=== PATIENT | male | born 1965 | race Caucasian/White ===

== ENCOUNTER 2018-01-25 20:37 | Inpatient (IN) | payer BC, MEDICAID ==
[2018-01-25] MEDS: ONDANSETRON 4 MG INJ IV (21:34)
[2018-01-25] MEDS: morphine 4 MG/ML VIAL IV (21:38)
[2018-01-25 22:13] LABS: ADD MAN DIFF? NO
[2018-01-25 22:16] LABS: ABNORMAL IP MESSAGE 1; BASOPHILS % 0.5 % (0.0-2.0); EOSINOPHILS # 0.1 10^3/ul (0.0-0.5); EOSINOPHILS % 3.5 % (0.0-7.0); HEMATOCRIT 31.4 % (42.0-52.0); HEMOGLOBIN 10.6 g/dl (14.0-18.0); LYMPHOCYTES # 0.5 10^3/ul (0.8-2.9); LYMPHOCYTES % 12.8 % (15.0-51.0); MEAN CORPUSCULAR HEMOGLOBIN 31.2 pg (29.0-33.0); MEAN CORPUSCULAR HGB CONC 33.8 g/dl (32.0-37.0); MEAN CORPUSCULAR VOLUME 92.4 fl (82.0-101.0); MEAN PLATELET VOLUME 10.4 fl (7.4-10.4); MONOCYTE # 0.5 10^3/ul (0.3-0.9); MONOCYTES % 11.3 % (0.0-11.0); NEUTROPHIL # 2.8 10^3/ul (1.6-7.5); NEUTROPHILS % 71.4 % (39.0-77.0); PLATELET COUNT 124 10^3/UL (140-415); POSITIVE DIFF @See below; RED CELL DISTRIBUTION WIDTH 12.1 % (11.5-14.5)
[2018-01-25 22:36] LABS: PROTIME 13.3 Sec (11.9-14.9)
[2018-01-25 22:37] LABS: PARTIAL THROMBOPLASTIN TIME 35.6 Sec (25.0-35.0)
[2018-01-25 22:49] LABS: TROPONIN-I 0.029 ng/ml (0.000-0.120)
[2018-01-26] MEDS ORDERED: ALBUTEROL/IPRATROPIUM (NEB) 3 ML AMP NEB
[2018-01-26 05:15] LABS: ADD MAN DIFF? NO
[2018-01-26 05:26] LABS: WHITE BLOOD COUNT 3.9 10^3/ul (4.8-10.8)
[2018-01-26 05:26] LABS: BASOPHILS % 0.5 % (0.0-2.0); EOSINOPHILS # 0.2 10^3/ul (0.0-0.5); EOSINOPHILS % 4.6 % (0.0-7.0); HEMATOCRIT 30.3 % (42.0-52.0); HEMOGLOBIN 9.8 g/dl (14.0-18.0); LYMPHOCYTES # 0.8 10^3/ul (0.8-2.9); LYMPHOCYTES % 19.6 % (15.0-51.0); MEAN CORPUSCULAR HEMOGLOBIN 30.5 pg (29.0-33.0); MEAN CORPUSCULAR HGB CONC 32.3 g/dl (32.0-37.0); MEAN CORPUSCULAR VOLUME 94.4 fl (82.0-101.0); MEAN PLATELET VOLUME 10.1 fl (7.4-10.4); MONOCYTE # 0.5 10^3/ul (0.3-0.9); MONOCYTES % 11.7 % (0.0-11.0); NEUTROPHIL # 2.5 10^3/ul (1.6-7.5); NEUTROPHILS % 63.1 % (39.0-77.0); PLATELET COUNT 106 10^3/UL (140-415); RED BLOOD COUNT 3.21 10^6/ul (4.70-6.10); RED CELL DISTRIBUTION WIDTH 12.1 % (11.5-14.5)
[2018-01-26 06:08] LABS: ALANINE AMINOTRANSFERASE 19 IU/L (13-69); ALBUMIN 3.7 g/dl (3.3-4.9); ALBUMIN/GLOBULIN RATIO 1.37; ALKALINE PHOSPHATASE 105 IU/L (42-121); ANION GAP 19 (8-16); ASPARTATE AMINO TRANSFERASE 9 IU/L (15-46); BLOOD UREA NITROGEN 60 mg/dl (7-20); CALCIUM 8.8 mg/dl (8.4-10.2); CARBON DIOXIDE 22 mmol/L (21-31); CHLORIDE 101 mmol/L (97-110); CREATININE 12.51 mg/dl (0.61-1.24); GLUCOSE 89 mg/dl (70-220); SODIUM 135 mmol/L (135-144); TOTAL PROTEIN 6.4 g/dl (6.1-8.1)
[2018-01-26 07:25] LABS: POTASSIUM 6.6 mmol/L (3.5-5.1)
[2018-01-26] MEDS: NA POLYST SULFON 15 GM/60 ML BTL PR (07:58)
[2018-01-26] MEDS ORDERED: FAMOTIDINE 20 MG INJ IV (09:00)
[2018-01-26] MEDS: CALCIUM GLUCONATE 10% 1 GM in DEXTROSE 5% 100 ML IVPB (09:00)
[2018-01-26 10:28] LABS: COLLAGEN/ADP 170 Secs. (40-147); COLLAGEN/EPI 220 Secs. (51-198)
[2018-01-26] MEDS: DEXAMETHASONE 4 MG/ML 1 ML INJ IV ×3 (12:13→23:40)
[2018-01-26] MEDS: morphine LIQ (10 MG/5 ML) CUP PO (13:26)
[2018-01-26 16:32] LABS: HEPATITIS B SURFACE ANTIGEN NEGATIVE (NEGATIVE)
[2018-01-26] MEDS: AMLODIPINE 10 MG TAB PO (18:35)
[2018-01-26] MEDS: LABETALOL HCL 20MG INJ IV (18:59)
[2018-01-26] MEDS: hydrALAzine 20 MG INJ IV (22:05)
[2018-01-27] MEDS: hydrALAzine 20 MG INJ IV ×2 (03:15→19:46)
[2018-01-27 05:34] LABS: ADD MAN DIFF? NO
[2018-01-27] MEDS: DEXAMETHASONE 4 MG/ML 1 ML INJ IV ×3 (05:45→19:35)
[2018-01-27] MEDS ORDERED: PANTOPRAZOLE (EC) 40 MG TAB PO (06:00)
[2018-01-27 06:04] LABS: WHITE BLOOD COUNT 3.1 10^3/ul (4.8-10.8)
[2018-01-27 06:04] LABS: ABNORMAL IP MESSAGE 1; HEMATOCRIT 30.1 % (42.0-52.0); HEMOGLOBIN 10.1 g/dl (14.0-18.0); LYMPHOCYTES # 0.2 10^3/ul (0.8-2.9); LYMPHOCYTES % 7.2 % (15.0-51.0); MEAN CORPUSCULAR HEMOGLOBIN 30.5 pg (29.0-33.0); MEAN CORPUSCULAR HGB CONC 33.6 g/dl (32.0-37.0); MEAN CORPUSCULAR VOLUME 90.9 fl (82.0-101.0); MEAN PLATELET VOLUME 10.4 fl (7.4-10.4); MONOCYTE # 0.1 10^3/ul (0.3-0.9); MONOCYTES % 2.3 % (0.0-11.0); NEUTROPHIL # 2.7 10^3/ul (1.6-7.5); NEUTROPHILS % 89.5 % (39.0-77.0); PLATELET COUNT 127 10^3/UL (140-415); POSITIVE DIFF @See below; RED BLOOD COUNT 3.31 10^6/ul (4.70-6.10); RED CELL DISTRIBUTION WIDTH 11.7 % (11.5-14.5)
[2018-01-27 06:39] LABS: INR 1.09; PROTIME 14.2 Sec (11.9-14.9); PT RATIO 1.1
[2018-01-27 06:40] LABS: ALANINE AMINOTRANSFERASE 20 IU/L (13-69); ALBUMIN 3.6 g/dl (3.3-4.9); ALBUMIN/GLOBULIN RATIO 1.16; ALKALINE PHOSPHATASE 117 IU/L (42-121); ANION GAP 18 (8-16); ASPARTATE AMINO TRANSFERASE 12 IU/L (15-46); BILIRUBIN,INDIRECT 0.1 mg/dl (0-1.1); BILIRUBIN,TOTAL 0.1 mg/dl (0.2-1.3); BLOOD UREA NITROGEN 42 mg/dl (7-20); CARBON DIOXIDE 27 mmol/L (21-31); CHLORIDE 98 mmol/L (97-110); CREATININE 9.04 mg/dl (0.61-1.24); GLUCOSE 179 mg/dl (70-220); PARTIAL THROMBOPLASTIN TIME 32.9 Sec (25.0-35.0); SODIUM 138 mmol/L (135-144); TOTAL PROTEIN 6.7 g/dl (6.1-8.1)
[2018-01-27] MEDS: ACETAMINOPHEN 650MG/20.3ML CUP PO (06:43)
[2018-01-27] MEDS ORDERED: ROCURONIUM 50 MG INJ ×2 (07:00→16:14)
[2018-01-27] MEDS ORDERED: PROPOFOL 200 MG INJ (07:00)
[2018-01-27] MEDS: SEVELAMER 800 MG TAB PO ×3 (07:34→17:35)
[2018-01-27 07:49] LABS: MAGNESIUM 2.3 mg/dl (1.7-2.5)
[2018-01-27 07:49] LABS: PHOSPHORUS 5.6 mg/dl (2.5-4.9)
[2018-01-27] MEDS: CINACALCET 30 MG TAB PO (09:00)
[2018-01-27] MEDS: NIFEdipine (XL) 90 MG TAB PO (10:30)
[2018-01-27] MEDS ORDERED: LIDOCAINE 0.5% (MDV) 50 ML INJ (14:24)
[2018-01-27] MEDS ORDERED: NEOMYC/POLYMYX/BACIT 30 GM OINT (14:25)
[2018-01-27] MEDS ORDERED: GELATIN SIZE 100 SPONGE (14:26)
[2018-01-27] MEDS ORDERED: THROMBIN 5000 UNIT VIAL ×2 (14:51→14:53)
[2018-01-27] MEDS ORDERED: PROPOFOL 20 ML (15:52)
[2018-01-27] MEDS ORDERED: LIDOCAINE 2% (SDV) 5 ML INJ (15:52)
[2018-01-27] MEDS ORDERED: CEFAZOLIN 1 GM INJ (16:14)
[2018-01-27] MEDS: BACITRACIN 50000 UNITS INJ (16:42)
[2018-01-27] MEDS: LIDOCAINE 1%/EPI 30 ML INJ (16:42)
[2018-01-27] MEDS: THROMBIN 5000 UNIT VIAL (17:48)
[2018-01-27] MEDS ORDERED: DIPHENHYDRAMINE 50 MG INJ IV ×2 (19:00→19:30)
[2018-01-27] MEDS ORDERED: DIPHENHYDRAMINE 25 MG CAP PO (19:00)
[2018-01-27] MEDS ORDERED: ONDANSETRON 4 MG INJ IV ×2 (19:00→19:30)
[2018-01-27] MEDS ORDERED: CEPASTAT LOZENGE MT (19:00)
[2018-01-27] MEDS ORDERED: CEFAZOLIN 2 GM/50 ML (PMX) 50 ML IVPB (19:00)
[2018-01-27] MEDS ORDERED: FAMOTIDINE 20 MG INJ (19:01)
[2018-01-27] MEDS ORDERED: ONDANSETRON 4 MG INJ (19:01)
[2018-01-27] MEDS ORDERED: DEXAMETHASONE 4 MG/ML 1 ML INJ (19:01)
[2018-01-27] MEDS ORDERED: FENTAnyl 50 MCG/ML VIAL IV (19:30)
[2018-01-27] MEDS: LACTATED RINGER'S 1,000 ML IV (19:35)
[2018-01-27] MEDS: CEFAZOLIN 2 GM/50 ML (PMX) 50 ML IVPB (20:50)
[2018-01-27] MEDS: HYDROmorphONE 0.5 MG/0.5 ML SYG IV (21:02)
[2018-01-28] MEDS: hydrALAzine 20 MG INJ IV ×3 (00:18→22:12)
[2018-01-28] MEDS: DEXAMETHASONE 4 MG/ML 1 ML INJ IV ×4 (00:18→17:01)
[2018-01-28 05:23] LABS: ADD MAN DIFF? NO
[2018-01-28 05:36] LABS: ABNORMAL IP MESSAGE 1; BASOPHILS % 0.1 % (0.0-2.0); HEMATOCRIT 30.8 % (42.0-52.0); HEMOGLOBIN 10.2 g/dl (14.0-18.0); LYMPHOCYTES # 0.3 10^3/ul (0.8-2.9); LYMPHOCYTES % 1.9 % (15.0-51.0); MEAN CORPUSCULAR HEMOGLOBIN 30.7 pg (29.0-33.0); MEAN CORPUSCULAR HGB CONC 33.1 g/dl (32.0-37.0); MEAN CORPUSCULAR VOLUME 92.8 fl (82.0-101.0); MEAN PLATELET VOLUME 10.1 fl (7.4-10.4); MONOCYTE # 0.2 10^3/ul (0.3-0.9); MONOCYTES % 1.7 % (0.0-11.0); NEUTROPHIL # 12.8 10^3/ul (1.6-7.5); NEUTROPHILS % 95.8 % (39.0-77.0); PLATELET COUNT 152 10^3/UL (140-415); POSITIVE DIFF @See below; RED BLOOD COUNT 3.32 10^6/ul (4.70-6.10); RED CELL DISTRIBUTION WIDTH 12.1 % (11.5-14.5)
[2018-01-28 05:36] LABS: WHITE BLOOD COUNT 13.4 10^3/ul (4.8-10.8)
[2018-01-28] MEDS: PANTOPRAZOLE (EC) 40 MG TAB PO (05:46)
[2018-01-28] MEDS: LACTATED RINGER'S 1,000 ML IV (05:52)
[2018-01-28 06:01] LABS: ANION GAP 20 (8-16); BLOOD UREA NITROGEN 51 mg/dl (7-20); CALCIUM 9.2 mg/dl (8.4-10.2); CARBON DIOXIDE 26 mmol/L (21-31); CHLORIDE 100 mmol/L (97-110); CREATININE 10.83 mg/dl (0.61-1.24); GLUCOSE 145 mg/dl (70-220); POTASSIUM 5.8 mmol/L (3.5-5.1); SODIUM 140 mmol/L (135-144)
[2018-01-28] MEDS: HYDROCODONE/APAP (5/325) TAB PO ×2 (07:22→13:25)
[2018-01-28] MEDS: SEVELAMER 800 MG TAB PO ×3 (07:48→16:58)
[2018-01-28] MEDS: NIFEdipine (XL) 90 MG TAB PO (07:51)
[2018-01-28] MEDS: CINACALCET 30 MG TAB PO (07:51)
[2018-01-28] MEDS: CEFAZOLIN 2 GM/50 ML (PMX) 50 ML IVPB ×2 (07:52→20:55)
[2018-01-29] MEDS: DEXAMETHASONE 4 MG/ML 1 ML INJ IV ×2 (00:06→05:28)
[2018-01-29] MEDS: hydrALAzine 20 MG INJ IV ×2 (05:28→21:32)
[2018-01-29] MEDS: PANTOPRAZOLE (EC) 40 MG TAB PO (05:28)
[2018-01-29] MEDS: HYDROCODONE/APAP (5/325) TAB PO ×2 (05:28→20:23)
[2018-01-29 05:51] LABS: ADD MAN DIFF? NO
[2018-01-29 06:09] LABS: WHITE BLOOD COUNT 9.7 10^3/ul (4.8-10.8)
[2018-01-29 06:09] LABS: ABNORMAL IP MESSAGE 1; BASOPHILS % 0.2 % (0.0-2.0); HEMATOCRIT 29.7 % (42.0-52.0); HEMOGLOBIN 9.8 g/dl (14.0-18.0); LYMPHOCYTES # 0.4 10^3/ul (0.8-2.9); LYMPHOCYTES % 3.8 % (15.0-51.0); MEAN CORPUSCULAR HEMOGLOBIN 31.3 pg (29.0-33.0); MEAN CORPUSCULAR VOLUME 94.9 fl (82.0-101.0); MEAN PLATELET VOLUME 10.1 fl (7.4-10.4); MONOCYTE # 0.4 10^3/ul (0.3-0.9); MONOCYTES % 4.6 % (0.0-11.0); NEUTROPHIL # 8.8 10^3/ul (1.6-7.5); NEUTROPHILS % 90.6 % (39.0-77.0); PLATELET COUNT 136 10^3/UL (140-415); POSITIVE DIFF @See below; RED BLOOD COUNT 3.13 10^6/ul (4.70-6.10)
[2018-01-29 06:35] LABS: ANION GAP 15 (8-16); BLOOD UREA NITROGEN 35 mg/dl (7-20); CALCIUM 8.6 mg/dl (8.4-10.2); CARBON DIOXIDE 30 mmol/L (21-31); CHLORIDE 101 mmol/L (97-110); CREATININE 7.73 mg/dl (0.61-1.24); GLUCOSE 134 mg/dl (70-220); MAGNESIUM 2.2 mg/dl (1.7-2.5); PHOSPHORUS 6.5 mg/dl (2.5-4.9); SODIUM 141 mmol/L (135-144)
[2018-01-29] MEDS: SEVELAMER 800 MG TAB PO ×3 (07:58→16:57)
[2018-01-29] MEDS: NIFEdipine (XL) 90 MG TAB PO (08:02)
[2018-01-29] MEDS: CINACALCET 30 MG TAB PO (08:02)
[2018-01-29] MEDS ORDERED: METHYLPREDNISOLONE (MEDROL) DOSE PACK PO (08:30)
[2018-01-29] MEDS: METHYLPREDNISOLONE 4 MG TAB PO (09:24)
[2018-01-29] MEDS ORDERED: LEVETIRACETAM 750 MG TAB PO (21:00)
[2018-01-29] MEDS ORDERED: LORAZEPAM 2 MG INJ IV ×2 (21:30)
[2018-01-29] MEDS: LEVETIRACETAM 1000 MG (PMX) 100 ML IVPB (21:44)
[2018-01-29] MEDS: DEXTROSE 5%-0.45% NACL 1,000 ML IV (21:44)
[2018-01-29 22:05] LABS: AADO2 Arterial 384.8 mmHg (7.0-24.0); Allen Test ACCEPTAB; Arterial Base Excess -3.3 mmol/L (-3.0-3); Arterial Blood Gas Oxygen Sat 99.2 mmHG (95.0-98.0); Arterial COHb 0.3 % (0.0-3.0); Arterial Fraction of Oxyhgb 98.5 % (93.0-99.0); Arterial HCO3 22.6 mmol/L (22.0-26.0); Arterial MetHb 0.4 % (0.0-1.5); Arterial Total Hemglobin 10.7 g/dl (12.0-18.0); Arterial pCO2 44.3 mmhg (35-45); MODE MASK - NRB; Site Right Radial
[2018-01-29 23:05] LABS: TROPONIN-I 0.054 ng/ml (0.000-0.120)
[2018-01-30] MEDS: hydrALAzine 20 MG INJ IV ×2 (01:09→08:10)
[2018-01-30 05:52] LABS: ADD MAN DIFF? NO
[2018-01-30 05:55] LABS: BASOPHILS % 0.1 % (0.0-2.0); EOSINOPHILS % 0.1 % (0.0-7.0); HEMATOCRIT 27.5 % (42.0-52.0); LYMPHOCYTES # 0.7 10^3/ul (0.8-2.9); LYMPHOCYTES % 6.7 % (15.0-51.0); MEAN CORPUSCULAR HEMOGLOBIN 30.8 pg (29.0-33.0); MEAN CORPUSCULAR HGB CONC 32.7 g/dl (32.0-37.0); MEAN CORPUSCULAR VOLUME 94.2 fl (82.0-101.0); MEAN PLATELET VOLUME 9.8 fl (7.4-10.4); MONOCYTES % 9.1 % (0.0-11.0); NEUTROPHIL # 8.9 10^3/ul (1.6-7.5); PLATELET COUNT 130 10^3/UL (140-415); RED BLOOD COUNT 2.92 10^6/ul (4.70-6.10); RED CELL DISTRIBUTION WIDTH 12.1 % (11.5-14.5)
[2018-01-30 05:55] LABS: WHITE BLOOD COUNT 10.7 10^3/ul (4.8-10.8)
[2018-01-30] MEDS: METHYLPREDNISOLONE 4 MG TAB PO ×4 (06:10→21:31)
[2018-01-30] MEDS: PANTOPRAZOLE 40 MG INJ IV (06:10)
[2018-01-30 06:17] LABS: ANION GAP 18 (8-16); BLOOD UREA NITROGEN 59 mg/dl (7-20); CALCIUM 8.2 mg/dl (8.4-10.2); CARBON DIOXIDE 27 mmol/L (21-31); CHLORIDE 101 mmol/L (97-110); CREATININE 9.69 mg/dl (0.61-1.24); GLUCOSE 115 mg/dl (70-220); MAGNESIUM 2.7 mg/dl (1.7-2.5); PHOSPHORUS 7.1 mg/dl (2.5-4.9); POTASSIUM 4.7 mmol/L (3.5-5.1); SODIUM 141 mmol/L (135-144)
[2018-01-30 06:28] LABS: TROPONIN-I 0.093 ng/ml (0.000-0.120)
[2018-01-30] MEDS: SEVELAMER 800 MG TAB PO ×4 (07:35→17:07)
[2018-01-30] MEDS: DEXTROSE 5%-0.45% NACL 1,000 ML IV (07:36)
[2018-01-30] MEDS: CINACALCET 30 MG TAB PO (08:10)
[2018-01-30] MEDS: ACETAMINOPHEN 650MG/20.3ML CUP PO (08:10)
[2018-01-30] MEDS: NIFEdipine (XL) 90 MG TAB PO (08:11)
[2018-01-30] MEDS: LEVETIRACETAM 750 MG TAB PO ×2 (08:11→21:29)
[2018-01-30] MEDS ORDERED: GLUCOSE GEL 15 GRAM TUBE PO ×2 (16:30)
[2018-01-30] MEDS ORDERED: GLUCAGON 1 MG INJ IM (16:30)
[2018-01-30] MEDS ORDERED: GLUCOSE GEL 15 GRAM TUBE BUCCAL (16:30)
[2018-01-30] MEDS ORDERED: DEXTROSE 50% 50 ML SYRINGE IV ×2 (16:30)
[2018-01-30] MEDS: INSULIN ASPART [NOVOLOG] 3 ML PEN SC ×2 (17:00→21:00)
[2018-01-30] MEDS: PHYTONADIONE 10 MG in DEXTROSE 5% 50 ML IVPB (17:58)
[2018-01-30] MEDS: DESMOPRESSIN 20 MCG in SOD CHLORIDE 0.9% 50 ML IVPB (21:29)
[2018-01-31] MEDS: ACCUCHECK AT 2AM (Patients on SS coverage) XX (02:29)
[2018-01-31] MEDS: HYDROCODONE/APAP (5/325) TAB PO (05:29)
[2018-01-31] MEDS: PANTOPRAZOLE 40 MG INJ IV (05:29)
[2018-01-31 05:41] LABS: ADD MAN DIFF? NO
[2018-01-31 05:46] LABS: ABNORMAL IP MESSAGE 1; BASOPHILS % 0.2 % (0.0-2.0); EOSINOPHILS % 0.2 % (0.0-7.0); HEMATOCRIT 24.3 % (42.0-52.0); HEMOGLOBIN 7.9 g/dl (14.0-18.0); LYMPHOCYTES # 0.5 10^3/ul (0.8-2.9); LYMPHOCYTES % 8.8 % (15.0-51.0); MEAN CORPUSCULAR HEMOGLOBIN 30.7 pg (29.0-33.0); MEAN CORPUSCULAR HGB CONC 32.5 g/dl (32.0-37.0); MEAN CORPUSCULAR VOLUME 94.6 fl (82.0-101.0); MEAN PLATELET VOLUME 9.3 fl (7.4-10.4); MONOCYTE # 0.4 10^3/ul (0.3-0.9); MONOCYTES % 6.6 % (0.0-11.0); NEUTROPHIL # 4.7 10^3/ul (1.6-7.5); NEUTROPHILS % 83.7 % (39.0-77.0); PLATELET COUNT 89 10^3/UL (140-415); POSITIVE DIFF @See below; RED BLOOD COUNT 2.57 10^6/ul (4.70-6.10); RED CELL DISTRIBUTION WIDTH 11.9 % (11.5-14.5)
[2018-01-31 05:46] LABS: WHITE BLOOD COUNT 5.6 10^3/ul (4.8-10.8)
[2018-01-31 06:03] LABS: ANION GAP 15 (8-16); BLOOD UREA NITROGEN 32 mg/dl (7-20); CALCIUM 8.3 mg/dl (8.4-10.2); CARBON DIOXIDE 30 mmol/L (21-31); CHLORIDE 99 mmol/L (97-110); CREATININE 6.84 mg/dl (0.61-1.24); GLUCOSE 119 mg/dl (70-220); MAGNESIUM 2.2 mg/dl (1.7-2.5); PHOSPHORUS 5.5 mg/dl (2.5-4.9); POTASSIUM 4.4 mmol/L (3.5-5.1); SODIUM 140 mmol/L (135-144)
[2018-01-31] MEDS: METHYLPREDNISOLONE 4 MG TAB PO ×4 (06:25→21:24)
[2018-01-31 06:33] LABS: HEMOGLOBIN A1C 5.7 % (0-5.9)
[2018-01-31] MEDS: INSULIN ASPART [NOVOLOG] 3 ML PEN SC ×4 (07:35→21:00)
[2018-01-31] MEDS: SEVELAMER 800 MG TAB PO ×3 (08:12→17:25)
[2018-01-31] MEDS: ACETAMINOPHEN 650MG/20.3ML CUP PO ×2 (08:13→21:24)
[2018-01-31] MEDS: CINACALCET 30 MG TAB PO (09:06)
[2018-01-31] MEDS: LEVETIRACETAM 750 MG TAB PO ×2 (09:06→21:27)
[2018-01-31] MEDS: NIFEdipine (XL) 90 MG TAB PO (09:06)
[2018-01-31] MEDS: DESMOPRESSIN 20 MCG in SOD CHLORIDE 0.9% 50 ML IVPB ×2 (09:41→21:22)
[2018-01-31] MEDS: PHYTONADIONE 10 MG in DEXTROSE 5% 50 ML IVPB (09:41)
[2018-02-01] MEDS: ACCUCHECK AT 2AM (Patients on SS coverage) XX (02:00)
[2018-02-01] MEDS: PANTOPRAZOLE 40 MG INJ IV (05:07)
[2018-02-01] MEDS: METHYLPREDNISOLONE 4 MG TAB PO ×5 (06:23→20:40)
[2018-02-01] MEDS: INSULIN ASPART [NOVOLOG] 3 ML PEN SC ×4 (07:35→20:41)
[2018-02-01] MEDS: SEVELAMER 800 MG TAB PO ×3 (07:48→17:50)
[2018-02-01] MEDS: LEVETIRACETAM 750 MG TAB PO ×2 (09:23→20:40)
[2018-02-01] MEDS: CINACALCET 30 MG TAB PO (09:23)
[2018-02-01] MEDS: NIFEdipine (XL) 90 MG TAB PO (09:24)
[2018-02-01] MEDS: PHYTONADIONE 10 MG in DEXTROSE 5% 50 ML IVPB (11:22)
[2018-02-02] MEDS: ACCUCHECK AT 2AM (Patients on SS coverage) XX (02:20)
[2018-02-02] MEDS: PANTOPRAZOLE 40 MG INJ IV (05:59)
[2018-02-02 06:40] LABS: ADD MAN DIFF? NO
[2018-02-02 06:43] LABS: ABNORMAL IP MESSAGE 1; BASOPHILS % 0.2 % (0.0-2.0); EOSINOPHILS # 0.1 10^3/ul (0.0-0.5); HEMATOCRIT 23.3 % (42.0-52.0); HEMOGLOBIN 7.6 g/dl (14.0-18.0); LYMPHOCYTES # 0.6 10^3/ul (0.8-2.9); LYMPHOCYTES % 10.1 % (15.0-51.0); MEAN CORPUSCULAR HEMOGLOBIN 31.1 pg (29.0-33.0); MEAN CORPUSCULAR HGB CONC 32.6 g/dl (32.0-37.0); MEAN CORPUSCULAR VOLUME 95.5 fl (82.0-101.0); MONOCYTE # 0.5 10^3/ul (0.3-0.9); MONOCYTES % 8.8 % (0.0-11.0); NEUTROPHIL # 4.4 10^3/ul (1.6-7.5); NEUTROPHILS % 78.2 % (39.0-77.0); PLATELET COUNT 94 10^3/UL (140-415); POSITIVE DIFF @See below; RED BLOOD COUNT 2.44 10^6/ul (4.70-6.10)
[2018-02-02 06:43] LABS: WHITE BLOOD COUNT 5.6 10^3/ul (4.8-10.8)
[2018-02-02] MEDS ORDERED: EPINEPHrine 0.1 MG/ML SYG (07:00)
[2018-02-02] MEDS: INSULIN ASPART [NOVOLOG] 3 ML PEN SC ×4 (07:53→20:36)
[2018-02-02] MEDS: METHYLPREDNISOLONE 4 MG TAB PO ×2 (08:24→20:33)
[2018-02-02] MEDS: SEVELAMER 800 MG TAB PO ×3 (08:24→18:14)
[2018-02-02] MEDS: CINACALCET 30 MG TAB PO (08:24)
[2018-02-02] MEDS: LEVETIRACETAM 750 MG TAB PO ×2 (08:24→20:33)
[2018-02-02] MEDS: NIFEdipine (XL) 90 MG TAB PO (08:25)
[2018-02-02] MEDS: hydrALAzine 20 MG INJ IV (23:13)
[2018-02-03] MEDS: ACCUCHECK AT 2AM (Patients on SS coverage) XX (02:42)
[2018-02-03] MEDS: ACETAMINOPHEN 650MG/20.3ML CUP PO (05:42)
[2018-02-03] MEDS: hydrALAzine 20 MG INJ IV (05:43)
[2018-02-03] MEDS: PANTOPRAZOLE 40 MG INJ IV (06:17)
[2018-02-03] MEDS: NIFEdipine (XL) 90 MG TAB PO (07:03)
[2018-02-03] MEDS: INSULIN ASPART [NOVOLOG] 3 ML PEN SC ×4 (07:55→20:54)
[2018-02-03] MEDS: HYDROCODONE/APAP (5/325) TAB PO ×3 (08:01→23:26)
[2018-02-03] MEDS: CINACALCET 30 MG TAB PO (08:11)
[2018-02-03] MEDS: LEVETIRACETAM 750 MG TAB PO ×2 (08:11→20:49)
[2018-02-03] MEDS: SEVELAMER 800 MG TAB PO (08:11)
[2018-02-03] MEDS: METHYLPREDNISOLONE 4 MG TAB PO (08:13)
[2018-02-03 08:46] LABS: ADD MAN DIFF? NO
[2018-02-03 08:56] LABS: WHITE BLOOD COUNT 4.2 10^3/ul (4.8-10.8)
[2018-02-03 08:56] LABS: ABNORMAL IP MESSAGE 1; BASOPHILS % 0.2 % (0.0-2.0); EOSINOPHILS # 0.1 10^3/ul (0.0-0.5); EOSINOPHILS % 2.4 % (0.0-7.0); HEMOGLOBIN 7.8 g/dl (14.0-18.0); LYMPHOCYTES # 0.6 10^3/ul (0.8-2.9); LYMPHOCYTES % 13.5 % (15.0-51.0); MEAN CORPUSCULAR HEMOGLOBIN 31.2 pg (29.0-33.0); MEAN CORPUSCULAR HGB CONC 33.9 g/dl (32.0-37.0); MONOCYTE # 0.4 10^3/ul (0.3-0.9); NEUTROPHIL # 3.1 10^3/ul (1.6-7.5); NEUTROPHILS % 72.2 % (39.0-77.0); PLATELET COUNT 96 10^3/UL (140-415); POSITIVE DIFF @See below
[2018-02-03 09:22] LABS: ANION GAP 13 (8-16); BLOOD UREA NITROGEN 42 mg/dl (7-20); CALCIUM 8.8 mg/dl (8.4-10.2); CARBON DIOXIDE 29 mmol/L (21-31); CHLORIDE 99 mmol/L (97-110); CREATININE 6.55 mg/dl (0.61-1.24); GLUCOSE 86 mg/dl (70-220); MAGNESIUM 2.2 mg/dl (1.7-2.5); PHOSPHORUS 3.9 mg/dl (2.5-4.9); POTASSIUM 4.3 mmol/L (3.5-5.1); SODIUM 137 mmol/L (135-144)
[2018-02-03] MEDS: SEVELAMER CARBONATE 800 MG TABLET PO ×2 (11:58→17:15)
[2018-02-04] MEDS: ACCUCHECK AT 2AM (Patients on SS coverage) XX (02:00)
[2018-02-04] MEDS: PANTOPRAZOLE 40 MG INJ IV (06:05)
[2018-02-04 07:38] LABS: ADD MAN DIFF? NO
[2018-02-04 07:42] LABS: ABNORMAL IP MESSAGE 1; BASOPHILS % 0.4 % (0.0-2.0); EOSINOPHILS # 0.1 10^3/ul (0.0-0.5); EOSINOPHILS % 2.6 % (0.0-7.0); HEMATOCRIT 23.3 % (42.0-52.0); HEMOGLOBIN 7.6 g/dl (14.0-18.0); LYMPHOCYTES # 0.6 10^3/ul (0.8-2.9); LYMPHOCYTES % 13.2 % (15.0-51.0); MEAN CORPUSCULAR HEMOGLOBIN 30.6 pg (29.0-33.0); MEAN CORPUSCULAR HGB CONC 32.6 g/dl (32.0-37.0); MEAN PLATELET VOLUME 10.1 fl (7.4-10.4); MONOCYTE # 0.6 10^3/ul (0.3-0.9); NEUTROPHIL # 3.2 10^3/ul (1.6-7.5); NEUTROPHILS % 69.3 % (39.0-77.0); PLATELET COUNT 98 10^3/UL (140-415); POSITIVE DIFF @See below; RED BLOOD COUNT 2.48 10^6/ul (4.70-6.10); RED CELL DISTRIBUTION WIDTH 12.2 % (11.5-14.5)
[2018-02-04 07:42] LABS: WHITE BLOOD COUNT 4.6 10^3/ul (4.8-10.8)
[2018-02-04] MEDS: INSULIN ASPART [NOVOLOG] 3 ML PEN SC ×4 (07:55→21:00)
[2018-02-04 08:02] LABS: ANION GAP 14 (8-16); BLOOD UREA NITROGEN 54 mg/dl (7-20); CALCIUM 8.2 mg/dl (8.4-10.2); CARBON DIOXIDE 29 mmol/L (21-31); CHLORIDE 99 mmol/L (97-110); GLUCOSE 90 mg/dl (70-220); MAGNESIUM 2.3 mg/dl (1.7-2.5); POTASSIUM 4.3 mmol/L (3.5-5.1); SODIUM 138 mmol/L (135-144)
[2018-02-04] MEDS: SEVELAMER CARBONATE 800 MG TABLET PO ×3 (08:36→17:35)
[2018-02-04] MEDS: CINACALCET 30 MG TAB PO (08:36)
[2018-02-04] MEDS: LEVETIRACETAM 750 MG TAB PO ×2 (08:37→21:06)
[2018-02-04] MEDS: NIFEdipine (XL) 90 MG TAB PO ×2 (08:38→11:13)
[2018-02-04] MEDS: LISINOPRIL 20 MG TAB PO ×2 (13:13→21:06)
[2018-02-04] MEDS: HYDROCODONE/APAP (5/325) TAB PO (19:35)
[2018-02-04] MEDS: NIFEdipine (XL) 60 MG TAB PO (21:07)
[2018-02-05] MEDS: hydrALAzine 20 MG INJ IV (00:27)
[2018-02-05] MEDS: ACCUCHECK AT 2AM (Patients on SS coverage) XX (02:00)
[2018-02-05] MEDS: PANTOPRAZOLE 40 MG INJ IV (05:08)
[2018-02-05] MEDS: INSULIN ASPART [NOVOLOG] 3 ML PEN SC (07:55)
[2018-02-05] MEDS: LEVETIRACETAM 750 MG TAB PO (08:03)
[2018-02-05] MEDS: SEVELAMER CARBONATE 800 MG TABLET PO (08:03)
[2018-02-05] MEDS: NIFEdipine (XL) 60 MG TAB PO (08:04)
[2018-02-05] MEDS: LISINOPRIL 20 MG TAB PO (08:13)
[2018-02-05] MEDS: CINACALCET 30 MG TAB PO (08:13)
== END 2018-02-05 10:53 | DRG 25 ==
LOC: ICU 23:31 → TEL 02-01 16:23 → E/R 20:37 → MS4 01-29 18:31 → ICU 01-29 19:15
PROVIDERS: Internal Medicine
PROC: 00C40ZZ Extirpation of Matter from Intracranial Subdural Space, Open Approach (ICD-10-PCS; principal; 2018-01-27 15:00)
PROC: 5A12012 Performance of Cardiac Output, Single, Manual (ICD-10-PCS; 2018-01-27 15:43)
DX: I62.01 Nontraumatic acute subdural hemorrhage (principal); N18.6 End stage renal disease; G93.5 Compression of brain; I46.9 Cardiac arrest, cause unspecified; I12.0 Hypertensive chronic kidney disease with stage 5 chronic kidney disease or end stage renal disease; N17.9 Acute kidney failure, unspecified; D61.818 Other pancytopenia; D68.9 Coagulation defect, unspecified; I62.02 Nontraumatic subacute subdural hemorrhage; E11.22 Type 2 diabetes mellitus with diabetic chronic kidney disease; E87.5 Hyperkalemia; E83.9 Disorder of mineral metabolism, unspecified; G40.909 Epilepsy, unspecified, not intractable, without status epilepticus; D63.1 Anemia in chronic kidney disease; I62.03 Nontraumatic chronic subdural hemorrhage; R40.2413 Glasgow coma scale score 13-15, at hospital admission; I27.20 Pulmonary hypertension, unspecified; Z99.2 Dependence on renal dialysis
CPT/HCPCS: 36600; 70450; 71045; 73090; 80048; 80053; 82803; 82962; 83036; 83735; 84100; 84484; 85025; 85210; 85220; 85230; 85240; 85250; 85260; 85270; 85280; 85576; 85610; 85730; 86850; 86900; 86901; 86920; 87340; 88304; 90935; 93005; 93306; 96374; 96375; 97110; 97116; 97161; 99291-25

== ENCOUNTER 2018-02-05 11:24 | Inpatient (IN) | payer BC, MEDICAID ==
[2018-02-05] MEDS ORDERED: DIPHENHYDRAMINE 25 MG CAP PO (13:53)
[2018-02-05] MEDS ORDERED: DIPHENHYDRAMINE 50 MG INJ IV (13:53)
[2018-02-05] MEDS ORDERED: METHYLPREDNISOLONE (MEDROL) DOSE PACK PO (13:53)
[2018-02-05] MEDS ORDERED: GLUCAGON 1 MG INJ IM (13:53)
[2018-02-05] MEDS ORDERED: ONDANSETRON 4 MG INJ IV (13:53)
[2018-02-05] MEDS ORDERED: LORAZEPAM 2 MG INJ IV ×2 (13:53)
[2018-02-05] MEDS ORDERED: hydrALAzine 20 MG INJ IV (13:53)
[2018-02-05] MEDS ORDERED: morphine LIQ (10 MG/5 ML) CUP PO (13:53)
[2018-02-05] MEDS ORDERED: GLUCOSE GEL 15 GRAM TUBE BUCCAL (13:53)
[2018-02-05] MEDS ORDERED: CEPASTAT LOZENGE MT (13:53)
[2018-02-05] MEDS ORDERED: GLUCOSE GEL 15 GRAM TUBE PO ×2 (13:53)
[2018-02-05] MEDS ORDERED: ALBUTEROL/IPRATROPIUM (NEB) 3 ML AMP NEB (13:53)
[2018-02-05] MEDS ORDERED: DEXTROSE 50% 50 ML SYRINGE IV ×2 (13:53)
[2018-02-05] MEDS ORDERED: ACETAMINOPHEN 650MG/20.3ML CUP PO (13:53)
[2018-02-05] MEDS: HYDROCODONE/APAP (5/325) TAB PO (14:30)
[2018-02-05 16:52] LABS: ADD UMIC YES; UR ASCORBIC ACID NEGATIVE (NEGATIVE); UR BILIRUBIN (Dip) NEGATIVE (NEGATIVE); UR BLOOD (Dip) NEGATIVE (NEGATIVE); UR CLARITY CLEAR (CLEAR); UR COLOR STRAW (YELLOW); UR GLUCOSE (Dip) 2+ mg/dL (NEGATIVE); UR KETONES (Dip) NEGATIVE (NEGATIVE); UR LEUKOCYTE ESTERASE (Dip) NEGATIVE Leu/ul (NEGATIVE); UR NITRITE (Dip) NEGATIVE (NEGATIVE); UR RBC 1 /HPF (0-5); UR SPECIFIC GRAVITY (Dip) 1.008 (1.003-1.030); UR TOTAL PROTEIN (Dip) 2+ mg/dl (NEGATIVE); UR UROBILINOGEN (Dip) NEGATIVE (NEGATIVE); UR WBC 2 /HPF (0-5)
[2018-02-05] MEDS: INSULIN ASPART [NOVOLOG] 3 ML PEN SC ×2 (17:35→21:00)
[2018-02-05] MEDS: SEVELAMER CARBONATE 800 MG TABLET PO (18:41)
[2018-02-05] MEDS: NIFEdipine (XL) 60 MG TAB PO (21:09)
[2018-02-05] MEDS: LEVETIRACETAM 750 MG TAB PO (21:09)
[2018-02-05] MEDS: LISINOPRIL 20 MG TAB PO (21:10)
[2018-02-06] MEDS: ACCUCHECK AT 2AM (Patients on SS coverage) XX (02:00)
[2018-02-06] MEDS ORDERED: BISACODYL 10 MG SUPP PR (02:30)
[2018-02-06] MEDS ORDERED: LACTULOSE 30ML CUP PO (02:30)
[2018-02-06] MEDS: PANTOPRAZOLE 40 MG INJ IV (06:42)
[2018-02-06 07:26] LABS: ADD MAN DIFF? NO
[2018-02-06 07:30] LABS: BASOPHILS % 0.8 % (0.0-2.0); EOSINOPHILS # 0.1 10^3/ul (0.0-0.5); EOSINOPHILS % 3.1 % (0.0-7.0); HEMATOCRIT 24.5 % (42.0-52.0); LYMPHOCYTES # 0.7 10^3/ul (0.8-2.9); LYMPHOCYTES % 17.2 % (15.0-51.0); MEAN CORPUSCULAR HEMOGLOBIN 30.8 pg (29.0-33.0); MEAN CORPUSCULAR HGB CONC 32.7 g/dl (32.0-37.0); MEAN CORPUSCULAR VOLUME 94.2 fl (82.0-101.0); MEAN PLATELET VOLUME 10.4 fl (7.4-10.4); MONOCYTE # 0.5 10^3/ul (0.3-0.9); MONOCYTES % 12.6 % (0.0-11.0); NEUTROPHIL # 2.5 10^3/ul (1.6-7.5); NEUTROPHILS % 64.2 % (39.0-77.0); PLATELET COUNT 114 10^3/UL (140-415)
[2018-02-06 07:30] LABS: WHITE BLOOD COUNT 3.9 10^3/ul (4.8-10.8)
[2018-02-06] MEDS: INSULIN ASPART [NOVOLOG] 3 ML PEN SC ×4 (07:35→22:15)
[2018-02-06 07:52] LABS: ALANINE AMINOTRANSFERASE 12 IU/L (13-69); ALBUMIN 3.2 g/dl (3.3-4.9); ALBUMIN/GLOBULIN RATIO 1.28; ALKALINE PHOSPHATASE 93 IU/L (42-121); ANION GAP 15 (8-16); ASPARTATE AMINO TRANSFERASE 13 IU/L (15-46); BILIRUBIN,INDIRECT 0.1 mg/dl (0-1.1); BILIRUBIN,TOTAL 0.1 mg/dl (0.2-1.3); BLOOD UREA NITROGEN 34 mg/dl (7-20); CALCIUM 8.3 mg/dl (8.4-10.2); CARBON DIOXIDE 30 mmol/L (21-31); CHLORIDE 99 mmol/L (97-110); GLUCOSE 85 mg/dl (70-220); POTASSIUM 4.5 mmol/L (3.5-5.1); SODIUM 139 mmol/L (135-144); TOTAL PROTEIN 5.7 g/dl (6.1-8.1)
[2018-02-06] MEDS: SEVELAMER CARBONATE 800 MG TABLET PO ×3 (08:53→18:11)
[2018-02-06] MEDS: DOCUSATE SODIUM 100 MG CAP PO ×2 (08:53→22:12)
[2018-02-06] MEDS: LEVETIRACETAM 750 MG TAB PO ×2 (08:54→22:12)
[2018-02-06] MEDS: LISINOPRIL 20 MG TAB PO ×2 (08:54→22:16)
[2018-02-06] MEDS: SENNA TAB PO ×2 (08:54→22:12)
[2018-02-06] MEDS: CINACALCET 30 MG TAB PO (08:54)
[2018-02-06] MEDS: NIFEdipine (XL) 60 MG TAB PO ×2 (08:54→22:17)
[2018-02-06] MEDS: ACETAMINOPHEN 325 MG TAB PO (16:42)
[2018-02-06] MEDS: EPOETIN 10000 UNITS/1 ML INJ (ESRD) SC (18:12)
[2018-02-07] MEDS: ACCUCHECK AT 2AM (Patients on SS coverage) XX (02:00)
[2018-02-07] MEDS: PANTOPRAZOLE 40 MG INJ IV (06:50)
[2018-02-07 07:01] LABS: ADD MAN DIFF? NO
[2018-02-07 07:05] LABS: WHITE BLOOD COUNT 3.4 10^3/ul (4.8-10.8)
[2018-02-07 07:06] LABS: ABNORMAL IP MESSAGE 1; BASOPHILS % 0.3 % (0.0-2.0); EOSINOPHILS # 0.1 10^3/ul (0.0-0.5); EOSINOPHILS % 2.9 % (0.0-7.0); HEMATOCRIT 24.8 % (42.0-52.0); HEMOGLOBIN 8.2 g/dl (14.0-18.0); LYMPHOCYTES # 0.5 10^3/ul (0.8-2.9); MEAN CORPUSCULAR HEMOGLOBIN 31.4 pg (29.0-33.0); MEAN CORPUSCULAR HGB CONC 33.1 g/dl (32.0-37.0); MEAN PLATELET VOLUME 9.6 fl (7.4-10.4); MONOCYTE # 0.4 10^3/ul (0.3-0.9); MONOCYTES % 11.3 % (0.0-11.0); NEUTROPHIL # 2.4 10^3/ul (1.6-7.5); NEUTROPHILS % 70.9 % (39.0-77.0); PLATELET COUNT 106 10^3/UL (140-415); POSITIVE DIFF @See below; RED BLOOD COUNT 2.61 10^6/ul (4.70-6.10); RED CELL DISTRIBUTION WIDTH 11.9 % (11.5-14.5)
[2018-02-07 07:35] LABS: ANION GAP 13 (8-16); BLOOD UREA NITROGEN 18 mg/dl (7-20); CALCIUM 8.1 mg/dl (8.4-10.2); CARBON DIOXIDE 29 mmol/L (21-31); CHLORIDE 101 mmol/L (97-110); CREATININE 5.23 mg/dl (0.61-1.24); GLUCOSE 83 mg/dl (70-220); PHOSPHORUS 2.9 mg/dl (2.5-4.9); POTASSIUM 4.7 mmol/L (3.5-5.1); SODIUM 138 mmol/L (135-144)
[2018-02-07] MEDS: INSULIN ASPART [NOVOLOG] 3 ML PEN SC ×4 (07:35→21:00)
[2018-02-07] MEDS: NIFEdipine (XL) 60 MG TAB PO ×2 (08:10→21:48)
[2018-02-07] MEDS: CINACALCET 30 MG TAB PO (08:10)
[2018-02-07] MEDS: LISINOPRIL 20 MG TAB PO ×2 (08:10→21:47)
[2018-02-07] MEDS: DOCUSATE SODIUM 100 MG CAP PO ×2 (08:11→21:47)
[2018-02-07] MEDS: SENNA TAB PO ×2 (08:11→21:47)
[2018-02-07] MEDS: SEVELAMER CARBONATE 800 MG TABLET PO ×3 (08:11→17:56)
[2018-02-07] MEDS: LEVETIRACETAM 750 MG TAB PO ×2 (08:11→21:47)
[2018-02-08] MEDS: ACCUCHECK AT 2AM (Patients on SS coverage) XX (02:00)
[2018-02-08] MEDS: PANTOPRAZOLE 40 MG INJ IV (07:01)
[2018-02-08] MEDS: INSULIN ASPART [NOVOLOG] 3 ML PEN SC ×4 (07:35→20:05)
[2018-02-08] MEDS: SEVELAMER CARBONATE 800 MG TABLET PO ×3 (07:44→17:47)
[2018-02-08] MEDS: CINACALCET 30 MG TAB PO (09:13)
[2018-02-08] MEDS: NIFEdipine (XL) 60 MG TAB PO ×2 (09:14→20:05)
[2018-02-08] MEDS: DOCUSATE SODIUM 100 MG CAP PO ×2 (09:14→20:05)
[2018-02-08] MEDS: LISINOPRIL 20 MG TAB PO ×2 (09:14→20:04)
[2018-02-08] MEDS: SENNA TAB PO ×2 (09:14→20:04)
[2018-02-08] MEDS: LEVETIRACETAM 750 MG TAB PO ×2 (09:14→20:04)
[2018-02-08] MEDS: ACETAMINOPHEN 325 MG TAB PO (20:05)
[2018-02-09] MEDS: ACCUCHECK AT 2AM (Patients on SS coverage) XX (02:00)
[2018-02-09] MEDS: PANTOPRAZOLE 40 MG INJ IV (06:09)
[2018-02-09] MEDS: INSULIN ASPART [NOVOLOG] 3 ML PEN SC ×4 (07:35→21:00)
[2018-02-09] MEDS: HYDROCODONE/APAP (5/325) TAB PO (08:52)
[2018-02-09] MEDS: LEVETIRACETAM 750 MG TAB PO ×2 (08:53→21:36)
[2018-02-09] MEDS: SEVELAMER CARBONATE 800 MG TABLET PO ×3 (08:53→18:38)
[2018-02-09] MEDS: DOCUSATE SODIUM 100 MG CAP PO ×2 (08:53→21:36)
[2018-02-09] MEDS: SENNA TAB PO ×2 (08:54→21:36)
[2018-02-09] MEDS: NIFEdipine (XL) 60 MG TAB PO ×2 (09:00→21:36)
[2018-02-09] MEDS: LISINOPRIL 20 MG TAB PO ×2 (09:24→21:36)
[2018-02-09] MEDS: CINACALCET 30 MG TAB PO (09:24)
[2018-02-09] MEDS: EPOETIN 10000 UNITS/1 ML INJ (ESRD) SC (18:40)
[2018-02-09] MEDS: MAGNESIUM HYDROXIDE 30ML CUP PO (21:42)
[2018-02-10] MEDS: ACCUCHECK AT 2AM (Patients on SS coverage) XX (02:00)
[2018-02-10] MEDS: PANTOPRAZOLE 40 MG INJ IV (06:29)
[2018-02-10 06:35] LABS: ADD MAN DIFF? NO
[2018-02-10 06:46] LABS: WHITE BLOOD COUNT 4.2 10^3/ul (4.8-10.8)
[2018-02-10 06:46] LABS: ABNORMAL IP MESSAGE 1; BASOPHILS % 0.5 % (0.0-2.0); EOSINOPHILS # 0.1 10^3/ul (0.0-0.5); EOSINOPHILS % 1.9 % (0.0-7.0); HEMATOCRIT 24.9 % (42.0-52.0); HEMOGLOBIN 8.3 g/dl (14.0-18.0); LYMPHOCYTES # 0.4 10^3/ul (0.8-2.9); LYMPHOCYTES % 10.1 % (15.0-51.0); MEAN CORPUSCULAR HEMOGLOBIN 31.4 pg (29.0-33.0); MEAN CORPUSCULAR HGB CONC 33.3 g/dl (32.0-37.0); MEAN CORPUSCULAR VOLUME 94.3 fl (82.0-101.0); MEAN PLATELET VOLUME 10.1 fl (7.4-10.4); MONOCYTE # 0.4 10^3/ul (0.3-0.9); MONOCYTES % 10.6 % (0.0-11.0); NEUTROPHIL # 3.2 10^3/ul (1.6-7.5); NEUTROPHILS % 76.4 % (39.0-77.0); PLATELET COUNT 109 10^3/UL (140-415); POSITIVE DIFF @See below; RED BLOOD COUNT 2.64 10^6/ul (4.70-6.10); RED CELL DISTRIBUTION WIDTH 11.9 % (11.5-14.5)
[2018-02-10 07:15] LABS: ANION GAP 12 (8-16); BLOOD UREA NITROGEN 25 mg/dl (7-20); CALCIUM 8.3 mg/dl (8.4-10.2); CARBON DIOXIDE 31 mmol/L (21-31); CHLORIDE 97 mmol/L (97-110); CREATININE 6.46 mg/dl (0.61-1.24); GLUCOSE 87 mg/dl (70-220); MAGNESIUM 2.2 mg/dl (1.7-2.5); PHOSPHORUS 2.7 mg/dl (2.5-4.9); POTASSIUM 4.7 mmol/L (3.5-5.1); SODIUM 135 mmol/L (135-144)
[2018-02-10] MEDS: INSULIN ASPART [NOVOLOG] 3 ML PEN SC ×4 (07:35→21:00)
[2018-02-10] MEDS: NIFEdipine (XL) 60 MG TAB PO ×2 (09:00→20:35)
[2018-02-10] MEDS: SEVELAMER CARBONATE 800 MG TABLET PO ×3 (10:02→17:35)
[2018-02-10] MEDS: HYDROCODONE/APAP (5/325) TAB PO ×2 (10:02→20:36)
[2018-02-10] MEDS: SENNA TAB PO ×2 (10:02→20:35)
[2018-02-10] MEDS: CINACALCET 30 MG TAB PO (10:02)
[2018-02-10] MEDS: DOCUSATE SODIUM 100 MG CAP PO ×2 (10:11→20:35)
[2018-02-10] MEDS: LISINOPRIL 20 MG TAB PO ×2 (10:12→20:35)
[2018-02-10] MEDS: LEVETIRACETAM 750 MG TAB PO ×2 (12:32→20:35)
[2018-02-11] MEDS: ACCUCHECK AT 2AM (Patients on SS coverage) XX (02:00)
[2018-02-11] MEDS: PANTOPRAZOLE (EC) 40 MG TAB PO (06:27)
[2018-02-11] MEDS: INSULIN ASPART [NOVOLOG] 3 ML PEN SC ×4 (07:35→21:00)
[2018-02-11] MEDS: SENNA TAB PO ×2 (08:32→21:00)
[2018-02-11] MEDS: NIFEdipine (XL) 60 MG TAB PO ×2 (08:32→21:18)
[2018-02-11] MEDS: SEVELAMER CARBONATE 800 MG TABLET PO ×3 (08:32→21:14)
[2018-02-11] MEDS: DOCUSATE SODIUM 100 MG CAP PO ×2 (08:32→21:00)
[2018-02-11] MEDS: HYDROCODONE/APAP (5/325) TAB PO (08:32)
[2018-02-11] MEDS: LEVETIRACETAM 750 MG TAB PO ×2 (08:32→21:17)
[2018-02-11] MEDS: LISINOPRIL 20 MG TAB PO ×2 (08:33→21:17)
[2018-02-11] MEDS: CINACALCET 30 MG TAB PO (08:33)
[2018-02-11] MEDS: EPOETIN 10000 UNITS/1 ML INJ (ESRD) SC (21:14)
[2018-02-12] MEDS: ACCUCHECK AT 2AM (Patients on SS coverage) XX (02:00)
[2018-02-12] MEDS: PANTOPRAZOLE (EC) 40 MG TAB PO (05:31)
[2018-02-12] MEDS: INSULIN ASPART [NOVOLOG] 3 ML PEN SC (07:35)
[2018-02-12] MEDS: SENNA TAB PO (08:24)
[2018-02-12] MEDS: CINACALCET 30 MG TAB PO (08:24)
[2018-02-12] MEDS: DOCUSATE SODIUM 100 MG CAP PO (08:24)
[2018-02-12] MEDS: SEVELAMER CARBONATE 800 MG TABLET PO ×2 (08:24→11:42)
[2018-02-12] MEDS: NIFEdipine (XL) 60 MG TAB PO (08:24)
[2018-02-12] MEDS: LISINOPRIL 20 MG TAB PO (08:25)
[2018-02-12] MEDS: LEVETIRACETAM 750 MG TAB PO (08:26)
[2018-02-12] MEDS: HYDROCODONE/APAP (5/325) TAB PO (08:26)
== END 2018-02-12 13:26 | disposition home health service (06) | DRG 64 ==
LOC: VRC 11:24
PROC: F07Z5ZZ Bed Mobility Treatment (ICD-10-PCS; principal; 2018-02-05)
PROC: F08Z2ZZ Grooming/Personal Hygiene Treatment (ICD-10-PCS; 2018-02-05)
PROC: F06Z6ZZ Communicative/Cognitive Integration Skills Treatment (ICD-10-PCS; 2018-02-05)
PROC: 5A1D70Z Performance of Urinary Filtration, Intermittent, Less than 6 Hours Per Day (ICD-10-PCS; 2018-02-06)
PROC: 5A1D70Z Performance of Urinary Filtration, Intermittent, Less than 6 Hours Per Day (ICD-10-PCS; 2018-02-09)
PROC: 5A1D70Z Performance of Urinary Filtration, Intermittent, Less than 6 Hours Per Day (ICD-10-PCS; 2018-02-11)
DX: I62.00 Nontraumatic subdural hemorrhage, unspecified (principal); N18.6 End stage renal disease; I12.0 Hypertensive chronic kidney disease with stage 5 chronic kidney disease or end stage renal disease; D61.818 Other pancytopenia; E87.2 Acidosis; G40.909 Epilepsy, unspecified, not intractable, without status epilepticus; E11.22 Type 2 diabetes mellitus with diabetic chronic kidney disease; Z99.2 Dependence on renal dialysis; K21.9 Gastro-esophageal reflux disease without esophagitis; E87.6 Hypokalemia; R13.10 Dysphagia, unspecified; Z79.4 Long term (current) use of insulin; D64.9 Anemia, unspecified; Z86.74 Personal history of sudden cardiac arrest; R51 Headache
CPT/HCPCS: 80048; 80053; 81001; 82962; 83735; 84100; 85025; 87081; 87086; 90935; 92507; 92523; 97110; 97112; 97116; 97150; 97163; 97167; 97530; 97535

== ENCOUNTER → 2018-03-09 | Outpatient (CLI) | payer BC, MEDICAID | END | disposition home or self-care (01) | LOC: C/S 16:03 | DX: R51 Headache (principal) | CPT/HCPCS: 70450 ==